=== PATIENT | female | born 1980 | race Caucasian/White ===

== ENCOUNTER → 2019-06-29 | Outpatient (CLI) | payer OTHER ==
[~2019-06-29] MED LIST: LISI5TAB PO; LVT.15T PO; OMEP20CA12 PO; SERT100T8 PO; roxicet
--- NOTE | 2019-06-29 13:07 | Diagnostic Imaging Report ---
PROCEDURE: CT abdomen and pelvis without contrast. TECHNIQUE: Multiple contiguous axial images were obtained through the abdomen and pelvis without the use of intravenous contrast. Auto Exposure Controls were utilized during the CT exam to meet ALARA standards for radiation dose reduction. INDICATION: Right lower quadrant pain, nausea and fever. FINDINGS: The air-containing appendix is well visualized and is normal. There is no evidence for appendicitis. The unobstructed kidneys appear nonfocal. No radiodense kidney stone. The ureters appear unremarkable. The unopacified urinary bladder is unremarkable. There are pelvic phleboliths noted incidentally. There is a left ovarian physiologic cyst. The uterus is absent. No ascites, abscess, hematoma, or acute fluid collection. There is no focal inflammatory change. This patient has tiny bilateral pleural effusions showing no evidence for their loculation. 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 IMPRESSION: Unobstructed, nonfocal urinary tracts. Normal appendix. No suspicious or acute adnexal lesion. Tiny pleural effusions and postoperative sequelae. No acute abdominopelvic abnormality. Dictated by: Dictated on workstation # [id number]
== END ==
LOC: RAD 12:13
PROVIDERS: ATTEND Family Medicine
DX: R10.31 Right lower quadrant pain (principal); R50.9 Fever, unspecified; R19.8 Other specified symptoms and signs involving the digestive system and abdomen; R11.0 Nausea
CPT/HCPCS: 74176